=== PATIENT | female | born 1985 | race Caucasian/White ===

== ENCOUNTER 2018-03-12 21:38 | Emergency (ER) | payer SELFPAY ==
[~2018-03-12] VITALS: Ht 165.1 cm; Wt 90.9 kg
[2018-03-12 22:43] LABS: HEMATOCRIT 37.4 % (36.0-46.0); HEMOGLOBIN 13.4 G/DL (11.9-15.5); MCH 30.9 PG (29.0-34.0); MCHC 35.8 G/DL (30.0-36.0); MCV 86.2 FL (83-99); PLATELET COUNT 325 K/uL (156-360); RBC DIS.WIDTH-CV 12.8 % (11.8-14.6); RBC DIS.WIDTH-SD 40.2 % (39-53); RED BLOOD COUNT 4.34 M/uL (3.80-5.20); WHITE BLOOD COUNT 11.6 K/uL (4.1-10.2)
[2018-03-12 22:52] LABS: ALBUMIN 4.4 g/dL (3.2-4.8); CHLORIDE 103 mEq/L (99-109); POTASSIUM 3.4 mEq/L (3.7-5.4); SODIUM 137 mEq/L (136-147)
[2018-03-12 22:54] LABS: GLUCOSE 97 mg/dL (70-99)
[2018-03-12 22:55] LABS: TOTAL PROTEIN 8.4 g/dL (6.4-8.3)
[2018-03-12 22:56] LABS: TOTAL BILIRUBIN 0.3 mg/dL (0.0-1.0)
[2018-03-12 22:56] LABS: APPEARANCE CLEAR ((CLEAR)); BILIRUBIN NEGATIVE; BLOOD MODERATE; COLOR STRAW ((YELLOW)); GLUCOSE (STRIP) NEGATIVE; KETONES 5; LEUKOCYTES NEGATIVE; NITRITE NEGATIVE; PROTEIN (STRIP) NEGATIVE; SPECIFIC GRAVITY 1.005 (1.000-1.030); UROBILINOGEN 0.2 MG/DL (0.2-1.0)
[2018-03-12 22:58] LABS: ALKALINE PHOSPHATASE 67 IU/L (3-129); CREATININE 0.7 mg/dL (0.6-1.3)
[2018-03-12 22:59] LABS: UREA NITROGEN (BUN) 13 mg/dL (9-23)
[2018-03-12 23:00] LABS: AST (GOT) 49 IU/L (2-34)
[2018-03-12 23:00] LABS: BACTERIA RARE /HPF; EPITHELIAL CELLS RARE /HPF; MUCUS NONE SEEN /LPF; RED BLOOD CELLS 0-5 /HPF (0-5); UCUL ADDED? NO; WHITE BLOOD CELLS 0-5 /HPF (0-5)
[2018-03-12 23:01] LABS: ALT (GPT) 64 IU/L (3-49)
[2018-03-12 23:04] LABS: GFR ESTIMATE (CALCULATED) > 59 mL/min/
[2018-03-12 23:07] LABS: QUANTITATIVE HCG < 4.0 MIU/ML
[2018-03-12 23:31] LABS: LIPASE 20 U/L (1.0-51.0)
[2018-03-13] MEDS ORDERED: NORCO 5/3251 TABLET PO (02:58)
[2018-03-13] MEDS ORDERED: MOTRIN600 MG PO (02:58)
[2018-03-13] MEDS ORDERED: ZOFRAN4 MG PO (02:58)
[2018-03-13 03:13] VITALS: BP 125/73
== END 2018-03-13 03:14 | disposition home or self-care (01) ==
LOC: EME 21:38
PROVIDERS: Physician Assistant
DX: K80.20 Calculus of gallbladder without cholecystitis without obstruction (principal); J45.909 Unspecified asthma, uncomplicated
CPT/HCPCS: 74177; 76705; 80053; 81003; 83690; 84702; 85027; 99281; 99284; J1885; J2405; J3010; J7030

== ENCOUNTER 2018-03-29 11:33 | Inpatient (IN) | payer OTHER ==
[~2018-03-29] VITALS: Ht 165.1 cm; Wt 99.8 kg
[~2018-03-29 11:33] MED LIST: ADVAIR 250/501 DISK IH; MOTRIN600 MG PO; NORCO 5/3251 TABLET PO; VENTOLIN HFA18 GM IH; ZOFRAN4 MG PO
[2018-03-29 12:20] VITALS: BP 135/83
[2018-03-29] MEDS ORDERED: NORCO 5/3251 TABLET PO (14:47)
[2018-03-29 17:00] VITALS: BP 138/72
[2018-03-29 18:05] VITALS: BP 133/72
[2018-03-29 20:05] VITALS: BP 165/87
[2018-03-29 23:58] VITALS: BP 155/81
[2018-03-30 04:27] VITALS: BP 146/78
[2018-03-30 07:40] VITALS: BP 131/71
[2018-03-30] MEDS ORDERED: NORCO 5/3251 TABLET PO (08:53)
[2018-03-30 12:11] VITALS: BP 139/85
[2018-03-30 13:32] LABS: BASOPHIL (%) 0.3 % (0-1); EOSINOPHIL (%) 0.3 % (0-5); HEMATOCRIT 32.8 % (36.0-46.0); HEMOGLOBIN 11.1 G/DL (11.9-15.5); IMMATURE GRANULOCYTE (%) 0.4 % (0.0-0.7); LYMPHOCYTE (%) 19.6 % (15-42); LYMPHOCYTE COUNT 2.5 K/uL (1.0-2.8); MCH 29.9 PG (29.0-34.0); MCHC 33.8 G/DL (30.0-36.0); MCV 88.4 FL (83-99); MONOCYTE (%) 7.5 % (3-12); NEUTROPHIL (%) 71.9 % (45-76); NEUTROPHIL COUNT 9.2 K/uL (1.8-6.4); PLATELET COUNT 238 K/uL (156-360); RBC DIS.WIDTH-SD 42.3 % (39-53); RED BLOOD COUNT 3.71 M/uL (3.80-5.20); WHITE BLOOD COUNT 12.8 K/uL (4.1-10.2)
[2018-03-30 14:02] LABS: ALBUMIN 3.9 G/DL (3.2-4.8); ALKALINE PHOSPHATASE 48 IU/L (3-129); ALT (GPT) 45 IU/L (3-49); TOTAL BILIRUBIN 0.3 MG/DL (0.0-1.0); TOTAL PROTEIN 6.2 G/DL (6.4-8.3)
[2018-03-30 14:05] LABS: AST (GOT) 38 IU/L (2-34)
[2018-03-30 15:50] VITALS: BP 128/67
[2018-03-30 19:15] VITALS: BP 116/61
[2018-03-30 23:59] VITALS: BP 95/50
[2018-03-31 03:57] VITALS: BP 116/65
[2018-03-31 07:19] VITALS: BP 125/70
[2018-03-31 08:35] VITALS: BP 125/70
[2018-03-31 08:37] LABS: BASOPHIL (%) 0.8 % (0-1); BASOPHIL COUNT 0.1 K/uL (0-0.1); EOSINOPHIL (%) 1.7 % (0-5); EOSINOPHIL COUNT 0.2 K/uL (0-0.3); HEMATOCRIT 32.3 % (36.0-46.0); HEMOGLOBIN 10.9 G/DL (11.9-15.5); IMMATURE GRANULOCYTE (%) 0.4 % (0.0-0.7); LYMPHOCYTE (%) 36.9 % (15-42); LYMPHOCYTE COUNT 3.3 K/uL (1.0-2.8); MCH 29.8 PG (29.0-34.0); MCHC 33.7 G/DL (30.0-36.0); MCV 88.3 FL (83-99); MONOCYTE (%) 6.3 % (3-12); MONOCYTE COUNT 0.6 K/uL (0-0.8); NEUTROPHIL (%) 53.9 % (45-76); NEUTROPHIL COUNT 4.9 K/uL (1.8-6.4); PLATELET COUNT 230 K/uL (156-360); RBC DIS.WIDTH-SD 42.3 % (39-53); RED BLOOD COUNT 3.66 M/uL (3.80-5.20); WHITE BLOOD COUNT 9.1 K/uL (4.1-10.2)
[2018-03-31 09:03] LABS: ALBUMIN 3.9 G/DL (3.2-4.8); CHLORIDE 104 MEQ/L (99-109); POTASSIUM 3.9 MEQ/L (3.7-5.4); SODIUM 141 MEQ/L (136-147); TOTAL BILIRUBIN 0.3 MG/DL (0.0-1.0)
[2018-03-31 09:09] LABS: ALKALINE PHOSPHATASE 53 IU/L (3-129); ALT (GPT) 45 IU/L (3-49); AST (GOT) 39 IU/L (2-34); CREATININE 0.6 MG/DL (0.6-1.3); GFR ESTIMATE (CALCULATED) > 59 mL/min/; GLUCOSE 87 mg/dL (70-99); TOTAL PROTEIN 6.3 G/DL (6.4-8.3); UREA NITROGEN (BUN) 10 mg/dL (9-23)
== END 2018-03-31 14:28 | disposition home or self-care (01) | DRG 419 ==
LOC: SDC → 2SOUTH 18:50 → 2EAST 18:50 → 2SOUTH 18:50 → ENRESERV 19:02 → 2EAST 19:40
PROVIDERS: Physician Assistant Medical
PROC: 0FT44ZZ Resection of Gallbladder, Percutaneous Endoscopic Approach (ICD-10-PCS; principal; 2018-03-29)
DX: K80.10 Calculus of gallbladder with chronic cholecystitis without obstruction (principal); E66.9 Obesity, unspecified; Z68.37 Body mass index [BMI] 37.0-37.9, adult; J45.909 Unspecified asthma, uncomplicated
CPT/HCPCS: 80053; 80076; 85025; 88304; G0378; J0131; J1100; J1170; J1885; J2250; J3010; J7120; S0074